=== PATIENT | male | born 1970 | race Caucasian/White ===

== ENCOUNTER 2016-12-15 11:07 | Inpatient (IN) | payer OTHER ==
[2016-12-15 11:50] VITALS: BMI 26.2
[2016-12-15] MEDS ORDERED: PNEUMOC 13-VAL CONJ-DIP CRM/PF 0.5 ML DISP.SYRIN IM ONE (12:00)
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
[2016-12-15] MEDS ORDERED: MAGNESIUM HYDROX 2400MG/30ML ORAL SUSPENSION 30 ML CUP PO PRN (12:22)
[2016-12-15] MEDS ORDERED: MAG HYDROX/AL HYDROX/SIMETH 30 ML UNIT-DOSE CUP PO PRN (12:22)
[2016-12-15] MEDS ORDERED: MENTHOL/PHENOL 1 EACH UD MM PRN (12:22)
[2016-12-15] MEDS ORDERED: IBUPROFEN 400 MG TABLET (FP) PO PRN (12:22)
[2016-12-15] MEDS ORDERED: P-EPHED 60MG/TRIPROLIDI 2.5MG TABLET PO PRN (12:22)
[2016-12-15] MEDS ORDERED: diphenhydrAMINE HCL 50 MG CAPSULE PO PRN (12:22)
[2016-12-15] MEDS ORDERED: hydrOXYzine PAMOATE 50 MG CAPSULE (FP) PO PRN (12:22)
[2016-12-15] MEDS ORDERED: LOPERAMIDE HCL 2 MG CAPSULE PO PRN (12:22)
[2016-12-15] MEDS ORDERED: guaiFENesin/D-METHORPHAN HB 10 ML UNIT-DOSE CUPS PO PRN (12:22)
[2016-12-15] MEDS ORDERED: ACETAMINOPHEN 325 MG TABLET (FP) PO PRN (12:22)
[2016-12-15] MEDS ORDERED: MAGNESIUM CITRATE 300 ML BOTTLE PO PRN (12:22)
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
[2016-12-15 16:09] LABS: MCH 27.3 pg (25.7-33.7); MCHC 32.9 g/dl (32.0-35.9); MEAN CELL VOLUME 83.1 fl (80-96); MEAN PLT VOLUME 8.3 fl (7.5-11.1); PLATELET COUNT 226 K/MM3 (134-434); RDW 14.1 % (11.9-15.9); WHITE BLOOD COUNT 7.4 K/mm3 (4.0-10.0)
[2016-12-15 16:52] LABS: ALBUMIN 3.7 g/dl (3.4-5.0); ANION GAP 8 (8-16); CALCIUM 8.8 mg/dL (8.5-10.1); CO2 28 mmol/L (21-32); GLUCOSE,RANDOM 101 mg/dL (74-106)
[2016-12-15 16:56] LABS: ALK PHOS 94 U/L (45-117); BILIRUBIN,TOTAL 0.5 mg/dL (0.2-1.0); CREATININE 0.9 mg/dL (0.7-1.3); SGOT/AST 16 U/L (15-37); SGPT/ALT 14 U/L (12-78); TOT PROT 7.5 g/dl (6.4-8.2)
[2016-12-15] MEDS: risperiDONE 2 MG TABLET PO SCH (21:24)
[2016-12-15] MEDS: traZODone HCL 100 MG TABLET (FP) PO SCH (21:24)
[2016-12-15] MEDS: THIAMINE HCL 100 MG TABLET (FP) PO SCH (21:24)
[2016-12-15] MEDS: PRAZOSIN HCL 1 MG CAPSULE PO SCH (21:24)
[2016-12-15] MEDS: risperiDONE 1 MG TABLET (FP) PO SCH (21:24)
[2016-12-16] MEDS: SERTRALINE HCL 50 MG TABLET (FP) PO SCH ×2 (09:48→09:53)
[2016-12-16] MEDS: PRENATAL VITAMINS W/ FOLIC ACID TABLET (FP) PO SCH (09:48)
[2016-12-16] MEDS: risperiDONE 2 MG TABLET PO SCH ×2 (09:49→21:10)
[2016-12-16 10:14] LABS: URINE APPEARANCE CLEAR; URINE BILIRUBIN NEGATIVE (NEGATIVE); URINE COLOR YELLOW; URINE GLUCOSE (UA) NEGATIVE (NEGATIVE); URINE KETONE NEGATIVE (NEGATIVE); URINE NITRITE NEGATIVE (NEGATIVE); URINE PROTEIN NEGATIVE (NEGATIVE); URINE UROBILINOGEN NEGATIVE E.U./dl (0.2-1.0)
[2016-12-16 10:15] LABS: URINE BLOOD 1+ (NEGATIVE); URINE LEUK ESTERASE TRACE (NEGATIVE)
[2016-12-16 11:33] LABS: CALCIUM OXALATE CRYSTALS RARE /hpf (NONE SEEN); URINE MUCUS RARE; URINE RBC 1 /hpf (0-3); URINE WBC 20 /hpf (3-5)
[2016-12-16] MEDS ORDERED: PNEUMOCOCCAL 23 VACCINE 0.5 ML VIAL IM ONE (12:00)
[2016-12-16] MEDS: PRAZOSIN HCL 1 MG CAPSULE PO SCH (21:10)
[2016-12-16] MEDS: risperiDONE 1 MG TABLET (FP) PO SCH (21:10)
[2016-12-16] MEDS: THIAMINE HCL 100 MG TABLET (FP) PO SCH (21:10)
[2016-12-16] MEDS: traZODone HCL 100 MG TABLET (FP) PO SCH (21:10)
--- NOTE | 2016-12-17 07:29 | PN ---
[facility] Progress Note Note: Laboratory Last Values WBC 7.4 K/mm3 (4.0-10.0) 12/15/16 13:20 RBC 4.95 M/mm3 (4.00-5.60) 12/15/16 13:20 Hgb 13.5 GM/dL (11.7-16.9) 12/15/16 13:20 Hct 41.1 % (35.4-49) 12/15/16 13:20 MCV 83.1 fl (80-96) 12/15/16 13:20 MCH 27.3 pg (25.7-33.7) 12/15/16 13:20 MCHC 32.9 g/dl (32.0-35.9) 12/15/16 13:20 RDW 14.1 % (11.9-15.9) 12/15/16 13:20 Plt Count 226 K/MM3 (134-434) 12/15/16 13:20 MPV 8.3 fl (7.5-11.1) 12/15/16 13:20 Sodium 139 mmol/L (136-145) 12/15/16 13:20 Potassium 4.3 mmol/L (3.5-5.1) 12/15/16 13:20 Chloride 103 mmol/L (98-107) 12/15/16 13:20 Carbon Dioxide 28 mmol/L (21-32) 12/15/16 13:20 Anion Gap 8 (8-16) 12/15/16 13:20 BUN 13 mg/dL (7-18) 12/15/16 13:20 Creatinine 0.9 mg/dL (0.7-1.3) 12/15/16 13:20 Creat Clearance w eGFR > 60 (>60) 12/15/16 13:20 Random Glucose 101 mg/dL (74-106) 12/15/16 13:20 Calcium 8.8 mg/dL (8.5-10.1) 12/15/16 13:20 Total Bilirubin 0.5 mg/dL (0.2-1.0) 12/15/16 13:20 AST 16 U/L (15-37) 12/15/16 13:20 ALT 14 U/L (12-78) 12/15/16 13:20 Alkaline Phosphatase 94 U/L (45-117) 12/15/16 13:20 Total Protein 7.5 g/dl (6.4-8.2) 12/15/16 13:20 Albumin 3.7 g/dl (3.4-5.0) 12/15/16 13:20 Urine Color Yellow 12/16/16 07:50 Urine Appearance Clear 12/16/16 07:50 Urine pH 5.0 (5.0-8.0) 12/16/16 07:50 Ur Specific [place] 1.025 (1.005-1.025) 12/16/16 07:50 Urine Protein Negative (NEGATIVE) 12/16/16 07:50 Urine Glucose (UA) Negative (NEGATIVE) 12/16/16 07:50 Urine Ketones Negative (NEGATIVE) 12/16/16 07:50 Urine Blood 1+ (NEGATIVE) H 12/16/16 07:50 Urine Nitrite Negative (NEGATIVE) 12/16/16 07:50 Urine Bilirubin Negative (NEGATIVE) 12/16/16 07:50 Urine Urobilinogen Negative mg/dL (0.2-1.0) 12/16/16 07:50 Ur Leukocyte Esterase Trace (NEGATIVE) H 12/16/16 07:50 Urine RBC 1 /hpf (0-3) 12/16/16 07:50 Urine WBC 20 /hpf (3-5) 12/16/16 07:50 Calcium Oxalate Crystal Rare /hpf (NONE SEEN) 12/16/16 07:50 Urine Mucus Rare 12/16/16 07:50 RPR Titer Nonreactive (NONREACTIVE) 12/15/16 13:20 repeat ua r/o uti
[2016-12-17] MEDS: PRENATAL VITAMINS W/ FOLIC ACID TABLET (FP) PO SCH (09:52)
[2016-12-17] MEDS: risperiDONE 2 MG TABLET PO SCH ×2 (09:52→21:15)
[2016-12-17] MEDS: SERTRALINE HCL 50 MG TABLET (FP) PO SCH ×2 (09:52)
[2016-12-17 10:05] LABS: URINE APPEARANCE CLEAR; URINE BILIRUBIN NEGATIVE (NEGATIVE); URINE BLOOD NEGATIVE (NEGATIVE); URINE COLOR YELLOW; URINE GLUCOSE (UA) NEGATIVE (NEGATIVE); URINE KETONE NEGATIVE (NEGATIVE); URINE NITRITE NEGATIVE (NEGATIVE); URINE PROTEIN NEGATIVE (NEGATIVE); URINE UROBILINOGEN NEGATIVE mg/dL (0.2-1.0)
[2016-12-17 10:51] LABS: URINE LEUK ESTERASE 1+ (NEGATIVE)
[2016-12-17 10:54] LABS: CALCIUM OXALATE CRYSTALS FEW /hpf (NONE SEEN); URINE BACTERIA RARE /hpf (NONE SEEN); URINE MUCUS RARE; URINE RBC <1 /hpf (0-3); URINE WBC 17 /hpf (3-5)
--- NOTE | 2016-12-17 16:06 | EKG ---
Test Reason : Blood Pressure : / mmHG Vent. Rate : 056 BPM Atrial Rate : 056 BPM P-R Int : 174 ms QRS Dur : 094 ms QT Int : 410 ms P-R-T Axes : 019 030 019 degrees QTc Int : 395 ms SINUS BRADYCARDIA OTHERWISE NORMAL ECG NO PREVIOUS ECGS AVAILABLE Confirmed by SHANA KIRBY MD ([id number]) on 12/17/2016 4:05:49 PM Referred By: Confirmed By:SHANA KIRBY MD
[2016-12-17] MEDS: risperiDONE 1 MG TABLET (FP) PO SCH (21:14)
[2016-12-17] MEDS: traZODone HCL 100 MG TABLET (FP) PO SCH (21:15)
[2016-12-17] MEDS: PRAZOSIN HCL 1 MG CAPSULE PO SCH (21:15)
[2016-12-17] MEDS: THIAMINE HCL 100 MG TABLET (FP) PO SCH (21:16)
[2016-12-18] MEDS: risperiDONE 2 MG TABLET PO SCH ×2 (10:03→21:53)
[2016-12-18] MEDS: SERTRALINE HCL 50 MG TABLET (FP) PO SCH ×2 (10:03)
[2016-12-18] MEDS: PRENATAL VITAMINS W/ FOLIC ACID TABLET (FP) PO SCH (10:03)
[2016-12-18] MEDS: traZODone HCL 100 MG TABLET (FP) PO SCH (21:51)
[2016-12-18] MEDS: THIAMINE HCL 100 MG TABLET (FP) PO SCH (21:51)
[2016-12-18] MEDS: PRAZOSIN HCL 1 MG CAPSULE PO SCH (21:51)
[2016-12-18] MEDS: risperiDONE 1 MG TABLET (FP) PO SCH (21:53)
[2016-12-19] MEDS: PRENATAL VITAMINS W/ FOLIC ACID TABLET (FP) PO SCH (09:41)
[2016-12-19] MEDS: risperiDONE 2 MG TABLET PO SCH ×2 (09:41→21:30)
[2016-12-19] MEDS: SERTRALINE HCL 50 MG TABLET (FP) PO SCH ×2 (09:42)
[2016-12-19] MEDS: traZODone HCL 100 MG TABLET (FP) PO SCH (21:29)
[2016-12-19] MEDS: PRAZOSIN HCL 1 MG CAPSULE PO SCH (21:29)
[2016-12-19] MEDS: risperiDONE 1 MG TABLET (FP) PO SCH (21:30)
[2016-12-19] MEDS: THIAMINE HCL 100 MG TABLET (FP) PO SCH (21:30)
[2016-12-20] MEDS: PRENATAL VITAMINS W/ FOLIC ACID TABLET (FP) PO SCH (09:56)
[2016-12-20] MEDS: risperiDONE 2 MG TABLET PO SCH ×2 (09:56→21:13)
[2016-12-20] MEDS: SERTRALINE HCL 50 MG TABLET (FP) PO SCH ×2 (09:56)
[2016-12-20] MEDS: traZODone HCL 100 MG TABLET (FP) PO SCH (21:13)
[2016-12-20] MEDS: PRAZOSIN HCL 1 MG CAPSULE PO SCH (21:13)
[2016-12-20] MEDS: risperiDONE 1 MG TABLET (FP) PO SCH (21:13)
[2016-12-20] MEDS: THIAMINE HCL 100 MG TABLET (FP) PO SCH (21:13)
[2016-12-21] MEDS: PRENATAL VITAMINS W/ FOLIC ACID TABLET (FP) PO SCH (10:05)
[2016-12-21] MEDS: risperiDONE 2 MG TABLET PO SCH ×2 (10:05→21:22)
[2016-12-21] MEDS: SERTRALINE HCL 50 MG TABLET (FP) PO SCH ×2 (10:05)
[2016-12-21] MEDS: PRAZOSIN HCL 1 MG CAPSULE PO SCH (21:22)
[2016-12-21] MEDS: THIAMINE HCL 100 MG TABLET (FP) PO SCH (21:23)
[2016-12-21] MEDS: risperiDONE 1 MG TABLET (FP) PO SCH (21:23)
[2016-12-21] MEDS: traZODone HCL 100 MG TABLET (FP) PO SCH (21:23)
[2016-12-22] MEDS: risperiDONE 2 MG TABLET PO SCH ×2 (10:02→21:41)
[2016-12-22] MEDS: PRENATAL VITAMINS W/ FOLIC ACID TABLET (FP) PO SCH (10:02)
[2016-12-22] MEDS: SERTRALINE HCL 50 MG TABLET (FP) PO SCH ×2 (10:02)
[2016-12-22] MEDS: PRAZOSIN HCL 1 MG CAPSULE PO SCH (21:40)
[2016-12-22] MEDS: risperiDONE 1 MG TABLET (FP) PO SCH (21:40)
[2016-12-22] MEDS: THIAMINE HCL 100 MG TABLET (FP) PO SCH (21:40)
[2016-12-22] MEDS: traZODone HCL 100 MG TABLET (FP) PO SCH (21:40)
[2016-12-23] MEDS: PRENATAL VITAMINS W/ FOLIC ACID TABLET (FP) PO SCH (10:07)
[2016-12-23] MEDS: SERTRALINE HCL 50 MG TABLET (FP) PO SCH ×2 (10:07→10:08)
[2016-12-23] MEDS: risperiDONE 2 MG TABLET PO SCH ×2 (10:21→22:02)
[2016-12-23] MEDS: THIAMINE HCL 100 MG TABLET (FP) PO SCH (22:00)
[2016-12-23] MEDS: PRAZOSIN HCL 1 MG CAPSULE PO SCH (22:01)
[2016-12-23] MEDS: risperiDONE 1 MG TABLET (FP) PO SCH (22:01)
[2016-12-23] MEDS: traZODone HCL 100 MG TABLET (FP) PO SCH (22:04)
[2016-12-24] MEDS: SERTRALINE HCL 50 MG TABLET (FP) PO SCH ×2 (10:10)
[2016-12-24] MEDS: PRENATAL VITAMINS W/ FOLIC ACID TABLET (FP) PO SCH (10:10)
[2016-12-24] MEDS: risperiDONE 2 MG TABLET PO SCH ×2 (10:10→21:29)
[2016-12-24] MEDS: THIAMINE HCL 100 MG TABLET (FP) PO SCH (21:29)
[2016-12-24] MEDS: traZODone HCL 100 MG TABLET (FP) PO SCH (21:29)
[2016-12-24] MEDS: risperiDONE 1 MG TABLET (FP) PO SCH (21:29)
[2016-12-24] MEDS: PRAZOSIN HCL 1 MG CAPSULE PO SCH (21:29)
[2016-12-25] MEDS ORDERED: LIDOCAINE VISCOUS 2% ORAL/TOP 20 ML UNIT-DOSE CUP MM PRN (06:46)
[2016-12-25] MEDS: risperiDONE 2 MG TABLET PO SCH ×2 (10:25→21:02)
[2016-12-25] MEDS: SERTRALINE HCL 50 MG TABLET (FP) PO SCH ×2 (10:25)
[2016-12-25] MEDS: PRENATAL VITAMINS W/ FOLIC ACID TABLET (FP) PO SCH (10:25)
--- NOTE | 2016-12-25 12:54 | PN ---
[facility] Progress Note Note: swelling of rt face at jaw x 1 day. Pt has tooth ache . rt lower molar loose with swelling imp-tooth abscess plan - motrin 600mg tid/prn clindamycin 300mg q6h
[2016-12-25] MEDS: CLINDAMYCIN HCL 150 MG CAPSULE (FP) PO SCH ×2 (17:54→23:50)
[2016-12-25] MEDS: THIAMINE HCL 100 MG TABLET (FP) PO SCH (21:02)
[2016-12-25] MEDS: PRAZOSIN HCL 1 MG CAPSULE PO SCH (21:02)
[2016-12-25] MEDS: traZODone HCL 100 MG TABLET (FP) PO SCH (21:02)
[2016-12-25] MEDS: risperiDONE 1 MG TABLET (FP) PO SCH (21:02)
[2016-12-25] MEDS: IBUPROFEN 600 MG TABLET (FP) PO PRN (23:52)
[2016-12-26] MEDS: CLINDAMYCIN HCL 150 MG CAPSULE (FP) PO SCH ×4 (06:41→23:06)
[2016-12-26] MEDS: PRENATAL VITAMINS W/ FOLIC ACID TABLET (FP) PO SCH (10:30)
[2016-12-26] MEDS: SERTRALINE HCL 50 MG TABLET (FP) PO SCH ×2 (10:30→10:31)
[2016-12-26] MEDS: IBUPROFEN 600 MG TABLET (FP) PO PRN (10:31)
[2016-12-26] MEDS: risperiDONE 2 MG TABLET PO SCH ×2 (10:31→21:33)
[2016-12-26] MEDS: risperiDONE 1 MG TABLET (FP) PO SCH (21:33)
[2016-12-26] MEDS: PRAZOSIN HCL 1 MG CAPSULE PO SCH (21:33)
[2016-12-26] MEDS: traZODone HCL 100 MG TABLET (FP) PO SCH (21:33)
[2016-12-26] MEDS: THIAMINE HCL 100 MG TABLET (FP) PO SCH (21:33)
[2016-12-27] MEDS: CLINDAMYCIN HCL 150 MG CAPSULE (FP) PO SCH ×4 (06:45→23:34)
[2016-12-27] MEDS: risperiDONE 2 MG TABLET PO SCH ×2 (10:18→21:38)
[2016-12-27] MEDS: PRENATAL VITAMINS W/ FOLIC ACID TABLET (FP) PO SCH (10:18)
[2016-12-27] MEDS: SERTRALINE HCL 50 MG TABLET (FP) PO SCH ×2 (10:19)
[2016-12-27] MEDS: IBUPROFEN 600 MG TABLET (FP) PO PRN (10:19)
[2016-12-27] MEDS: risperiDONE 1 MG TABLET (FP) PO SCH (21:38)
[2016-12-27] MEDS: traZODone HCL 100 MG TABLET (FP) PO SCH (21:38)
[2016-12-27] MEDS: PRAZOSIN HCL 1 MG CAPSULE PO SCH (21:38)
[2016-12-27] MEDS: THIAMINE HCL 100 MG TABLET (FP) PO SCH (21:39)
[2016-12-28] MEDS: CLINDAMYCIN HCL 150 MG CAPSULE (FP) PO SCH ×4 (06:24→23:28)
[2016-12-28] MEDS: PRENATAL VITAMINS W/ FOLIC ACID TABLET (FP) PO SCH (10:17)
[2016-12-28] MEDS: risperiDONE 2 MG TABLET PO SCH ×2 (10:17→21:36)
[2016-12-28] MEDS: SERTRALINE HCL 50 MG TABLET (FP) PO SCH ×2 (10:17)
[2016-12-28] MEDS: risperiDONE 1 MG TABLET (FP) PO SCH (21:35)
[2016-12-28] MEDS: traZODone HCL 100 MG TABLET (FP) PO SCH (21:36)
[2016-12-28] MEDS: THIAMINE HCL 100 MG TABLET (FP) PO SCH (21:36)
[2016-12-28] MEDS: PRAZOSIN HCL 1 MG CAPSULE PO SCH (21:36)
[2016-12-29] MEDS: CLINDAMYCIN HCL 150 MG CAPSULE (FP) PO SCH ×4 (06:42→23:29)
[2016-12-29] MEDS: risperiDONE 2 MG TABLET PO SCH ×2 (10:12→21:46)
[2016-12-29] MEDS: SERTRALINE HCL 50 MG TABLET (FP) PO SCH ×2 (10:12)
[2016-12-29] MEDS: PRENATAL VITAMINS W/ FOLIC ACID TABLET (FP) PO SCH (10:12)
[2016-12-29] MEDS: risperiDONE 1 MG TABLET (FP) PO SCH (21:46)
[2016-12-29] MEDS: PRAZOSIN HCL 1 MG CAPSULE PO SCH (21:46)
[2016-12-29] MEDS: THIAMINE HCL 100 MG TABLET (FP) PO SCH (21:46)
[2016-12-29] MEDS: traZODone HCL 100 MG TABLET (FP) PO SCH (21:46)
[2016-12-30] MEDS: CLINDAMYCIN HCL 150 MG CAPSULE (FP) PO SCH ×4 (06:22→23:11)
[2016-12-30] MEDS: risperiDONE 2 MG TABLET PO SCH ×2 (10:01→21:44)
[2016-12-30] MEDS: SERTRALINE HCL 50 MG TABLET (FP) PO SCH ×2 (10:01)
[2016-12-30] MEDS: PRENATAL VITAMINS W/ FOLIC ACID TABLET (FP) PO SCH (10:01)
[2016-12-30] MEDS: risperiDONE 1 MG TABLET (FP) PO SCH (21:44)
[2016-12-30] MEDS: THIAMINE HCL 100 MG TABLET (FP) PO SCH (21:44)
[2016-12-30] MEDS: PRAZOSIN HCL 1 MG CAPSULE PO SCH (21:44)
[2016-12-30] MEDS: traZODone HCL 100 MG TABLET (FP) PO SCH (21:44)
[2016-12-31] MEDS: CLINDAMYCIN HCL 150 MG CAPSULE (FP) PO SCH ×4 (06:18→23:20)
[2016-12-31] MEDS: risperiDONE 2 MG TABLET PO SCH ×2 (10:19→21:13)
[2016-12-31] MEDS: SERTRALINE HCL 50 MG TABLET (FP) PO SCH ×2 (10:19)
[2016-12-31] MEDS: PRENATAL VITAMINS W/ FOLIC ACID TABLET (FP) PO SCH (10:19)
[2016-12-31] MEDS: traZODone HCL 100 MG TABLET (FP) PO SCH (21:12)
[2016-12-31] MEDS: THIAMINE HCL 100 MG TABLET (FP) PO SCH (21:12)
[2016-12-31] MEDS: PRAZOSIN HCL 1 MG CAPSULE PO SCH (21:12)
[2016-12-31] MEDS: risperiDONE 1 MG TABLET (FP) PO SCH (21:13)
[2017-01-01] MEDS: CLINDAMYCIN HCL 150 MG CAPSULE (FP) PO SCH ×3 (06:12→23:13)
[2017-01-01] MEDS: risperiDONE 2 MG TABLET PO SCH ×2 (10:46→21:32)
[2017-01-01] MEDS: SERTRALINE HCL 50 MG TABLET (FP) PO SCH ×2 (10:47→10:49)
[2017-01-01] MEDS: PRENATAL VITAMINS W/ FOLIC ACID TABLET (FP) PO SCH (10:47)
[2017-01-01] MEDS: PRAZOSIN HCL 1 MG CAPSULE PO SCH (21:32)
[2017-01-01] MEDS: traZODone HCL 100 MG TABLET (FP) PO SCH (21:32)
[2017-01-01] MEDS: THIAMINE HCL 100 MG TABLET (FP) PO SCH (21:32)
[2017-01-01] MEDS: risperiDONE 1 MG TABLET (FP) PO SCH (21:32)
[2017-01-02] MEDS: risperiDONE 2 MG TABLET PO SCH ×2 (10:19→22:06)
[2017-01-02] MEDS: PRENATAL VITAMINS W/ FOLIC ACID TABLET (FP) PO SCH (10:19)
[2017-01-02] MEDS: SERTRALINE HCL 50 MG TABLET (FP) PO SCH ×2 (10:19)
[2017-01-02] MEDS: risperiDONE 1 MG TABLET (FP) PO SCH (22:06)
[2017-01-02] MEDS: PRAZOSIN HCL 1 MG CAPSULE PO SCH (22:06)
[2017-01-02] MEDS: THIAMINE HCL 100 MG TABLET (FP) PO SCH (22:06)
[2017-01-02] MEDS: traZODone HCL 100 MG TABLET (FP) PO SCH (22:06)
[2017-01-03] MEDS: risperiDONE 2 MG TABLET PO SCH ×2 (10:26→21:16)
[2017-01-03] MEDS: PRENATAL VITAMINS W/ FOLIC ACID TABLET (FP) PO SCH (10:26)
[2017-01-03] MEDS: SERTRALINE HCL 50 MG TABLET (FP) PO SCH ×2 (10:26→10:27)
[2017-01-03] MEDS: PRAZOSIN HCL 1 MG CAPSULE PO SCH (21:16)
[2017-01-03] MEDS: traZODone HCL 100 MG TABLET (FP) PO SCH (21:16)
[2017-01-03] MEDS: risperiDONE 1 MG TABLET (FP) PO SCH (21:16)
[2017-01-03] MEDS: THIAMINE HCL 100 MG TABLET (FP) PO SCH (21:16)
[2017-01-04 07:09] VITALS: BP 130/80; PULSE 101; TEMP 98.1
[2017-01-04] MEDS: risperiDONE 2 MG TABLET PO SCH ×2 (10:27→21:55)
[2017-01-04] MEDS: SERTRALINE HCL 50 MG TABLET (FP) PO SCH ×2 (10:27)
[2017-01-04] MEDS: PRENATAL VITAMINS W/ FOLIC ACID TABLET (FP) PO SCH (10:27)
[2017-01-04] MEDS: THIAMINE HCL 100 MG TABLET (FP) PO SCH (21:55)
[2017-01-04] MEDS: traZODone HCL 100 MG TABLET (FP) PO SCH (21:55)
[2017-01-04] MEDS: risperiDONE 1 MG TABLET (FP) PO SCH (21:55)
[2017-01-04] MEDS: PRAZOSIN HCL 1 MG CAPSULE PO SCH (21:55)
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
[2017-01-05] MEDS: PRENATAL VITAMINS W/ FOLIC ACID TABLET (FP) PO SCH (10:18)
[2017-01-05] MEDS: risperiDONE 2 MG TABLET PO SCH (10:18)
[2017-01-05] MEDS: SERTRALINE HCL 50 MG TABLET (FP) PO SCH ×2 (10:18→10:19)
== END 2017-01-05 11:00 | disposition home or self-care (01) | DRG 772 ==
LOC: YASAS 11:07 → Y5N 12:33
PROVIDERS: ADMIT Psychiatry & Neurology Psychiatry; ATTEND Psychiatry & Neurology Psychiatry
PROC: HZ42ZZZ Group Counseling for Substance Abuse Treatment, Cognitive-Behavioral (ICD-10-PCS; principal; 2016-12-15)
DX: F14.20 Cocaine dependence, uncomplicated (principal); F12.20 Cannabis dependence, uncomplicated; F43.10 Post-traumatic stress disorder, unspecified; F20.9 Schizophrenia, unspecified; I10 Essential (primary) hypertension; K04.7 Periapical abscess without sinus; Z91.5 Personal history of self-harm
CPT/HCPCS: 36415; 80053; 81003; 81015; 85027; 86593; 90732; 93005; 93010; G0009; J2794